=== PATIENT | male | born 1950 | race American Indian/Alaskan Native ===

== ENCOUNTER 2017-10-11 20:37 | Emergency (ER) | payer MEDICARE ==
--- NOTE | 2017-10-11 22:45 | XRay Report ---
FINAL REPORT PROCEDURE: XR CHEST ROUTINE 2V TECHNIQUE: PA and lateral chest radiographs were obtained. CPT 38795 HISTORY: TIERNEY COMPARISON: No prior studies are available for comparison. FINDINGS: Heart: The heart size is enlarged. Multiple sternal wires are present. There is a cardiac pacemaker with the battery in the left chest wall. Mediastinum/Vessels: Normal. Lungs/Pleural space: Mild atelectasis both lower lungs. No effusion or pneumothorax. Bony thorax: No acute osseous abnormality. Other: IMPRESSION: Mild atelectasis both lower lungs. Moderate cardiomegaly..
--- NOTE | 2017-10-12 01:57 | Emergency Department Report ---
ED General Adult HPI - General Chief complaint: Dyspnea/Respdistress Stated complaint: SOB Time Seen by Provider: 10/12/17 01:42 Source: patient Mode of arrival: Ambulatory Limitations: No Limitations - History of Present Illness Initial comments: Mr. Baum is 67 years old male history of congestive heart failure with EF of 10%, ICD in place. Patient is visiting from [place]. He stated that he misplaced his Lasix and he just recently found it any peptic then he is feeling much better but he is in need for refill of his Ambien, clonazepam, spironolactone and Percocet that he is taking for his compound ankle fracture. He denying chest pain, weakness numbness or tingling sensation. - Related Data Home Medications Medication Instructions Recorded Confirmed Last Taken Carvedilol [Coreg] 12.5 mg PO BID 06/11/17 06/28/17 06/28/17 Clopidogrel [Plavix] 75 mg PO QDAY 06/11/17 06/28/17 06/28/17 Furosemide [Lasix] 80 mg PO DAILY 06/11/17 06/28/17 06/28/17 Lisinopril [Zestril] 10 mg PO DAILY 06/11/17 06/28/17 06/28/17 clonazePAM 0.5 mg PO TID PRN 06/11/17 06/28/17 06/28/17 Previous Rx's Medication Instructions Recorded Last Taken Type Spironolactone [Aldactone] 12.5 mg PO QDAY #30 tablet 06/14/17 06/28/17 Rx Metolazone [Zaroxolyn] 2.5 mg PO Q2D #30 tablet 07/02/17 Unknown Rx Zolpidem [Ambien] 10 mg PO QHS #5 tablet 07/02/17 Unknown Rx Allergies Allergy/AdvReac Type Severity Reaction Status Date / Time Penicillins AdvReac Severe Rash Verified 06/11/17 18:23 ED Review of Systems ROS: Stated complaint: SOB Other details as noted in HPI Comment: All other systems reviewed and negative Constitutional: denies: chills, fever Respiratory: denies: cough, shortness of breath, SOB with exertion, SOB at rest , wheezing Cardiovascular: denies: chest pain, palpitations, dyspnea on exertion, orthopnea Gastrointestinal: denies: abdominal pain, nausea, vomiting, diarrhea, constipation Musculoskeletal: denies: back pain Neurological: denies: headache, weakness, numbness, paresthesias, confusion, abnormal gait ED Past Medical Hx - Past Medical History Previous Medical History?: Yes Hx Hypertension: Yes Hx Congestive Heart Failure: Yes Hx Diabetes: Yes (borderline) Hx Asthma: Yes (as a child) Hx COPD: No - Surgical History Past Surgical History?: Yes Hx Open Heart Surgery: Yes (triple bypass) Hx Pacemaker: Yes Hx Internal Defibrillator: Yes Additional Surgical History: defibrillator, Left leg surgery - Social History Smoking Status: Former Smoker Substance Use Type: None - Medications Home Medications: Home Medications Medication Instructions Recorded Confirmed Last Taken Type Carvedilol [Coreg] 12.5 mg PO BID 06/11/17 06/28/17 06/28/17 History Clopidogrel [Plavix] 75 mg PO QDAY 06/11/17 06/28/17 06/28/17 History Furosemide [Lasix] 80 mg PO DAILY 06/11/17 06/28/17 06/28/17 History Lisinopril [Zestril] 10 mg PO DAILY 06/11/17 06/28/17 06/28/17 History clonazePAM 0.5 mg PO TID PRN 06/11/17 06/28/17 06/28/17 History Spironolactone [Aldactone] 12.5 mg PO QDAY #30 tablet 06/14/17 06/28/17 Rx Metolazone [Zaroxolyn] 2.5 mg PO Q2D #30 tablet 07/02/17 Unknown Rx Zolpidem [Ambien] 10 mg PO QHS #5 tablet 07/02/17 Unknown Rx ED Physical Exam - General Limitations: No Limitations General appearance: alert, in no apparent distress, other (patient in no acute distress, no shortness of breath or dyspnea or tachypnea. He is talking in full sentences.) - Head Head exam: Present: atraumatic, normocephalic, normal inspection - Eye Eye exam: Present: normal appearance, PERRL - ENT ENT exam: Present: normal exam, normal orophraynx, mucous membranes moist - Neck Neck exam: Present: normal inspection, full ROM. Absent: tenderness, meningismus, lymphadenopathy, thyromegaly - Respiratory Respiratory exam: Present: normal lung sounds bilaterally. Absent: respiratory distress, wheezes, rales, rhonchi, stridor, chest wall tenderness, accessory muscle use, decreased breath sounds, prolonged expiratory - Cardiovascular Cardiovascular Exam: Present: regular rate, normal rhythm, normal heart sounds - GI/Abdominal GI/Abdominal exam: Present: soft, normal bowel sounds. Absent: distended, tenderness, guarding, rebound, rigid, organomegaly, mass, bruit, pulsatile mass , hernia - Extremities Exam Extremities exam: Present: normal inspection, full ROM, normal capillary refill. Absent: tenderness, pedal edema, joint swelling, calf tenderness - Back Exam Back exam: Present: normal inspection, full ROM. Absent: tenderness, CVA tenderness (R), CVA tenderness (L), muscle spasm, paraspinal tenderness, vertebral tenderness, rash noted - Neurological Exam Neurological exam: Present: alert, oriented X3, CN II-XII intact, normal gait - Skin Skin exam: Present: warm, intact, normal color ED Course Vital Signs 10/11/17 10/12/17 21:23 01:01 Temperature 97.9 F 98.1 F Pulse Rate 77 63 Respiratory 18 24 Rate Blood Pressure 136/100 Blood Pressure 135/81 [Left] O2 Sat by Pulse 99 98 Oximetry ED Medical Decision Making - Radiology Data Radiology results: report reviewed Referring Physician: JEFFREY DICKINSON Patient Name: JORDAN BAUM Date of : 1950 Sex: Male Report Date: 2017-10-11 Report Status: Finalized Findings [facility] [address] [place] [address] XRay Report Signed Patient: JORDAN BAUM MR#: [id number] : 1950 Acct:[id number] Age/Sex: 67 / M ADM Date: 10/11/17 Loc: ED Attending Dr: Ordering Physician: JEFFREY DICKINSON MD Date of Service: 10/11/17 Procedure(s): XR chest routine 2V Accession Number(s): [id number] cc: JEFFREY DICKINSON MD Fluoro Time In Minutes: FINAL REPORT PROCEDURE: XR CHEST ROUTINE 2V TECHNIQUE: PA and lateral chest radiographs were obtained. CPT 24006 HISTORY: TIERNEY COMPARISON: No prior studies are available for comparison. FINDINGS: Heart: The heart size is enlarged. Multiple sternal wires are present. There is a cardiac pacemaker with the battery in the left chest wall. Mediastinum/Vessels: Normal. Lungs/Pleural space: Mild atelectasis both lower lungs. No effusion or pneumothorax. Bony thorax: No acute osseous abnormality. Other: IMPRESSION: Mild atelectasis both lower lungs. Moderate cardiomegaly.. Transcribed By: [facility] Dictated By: LANA LOPEZ MD Electronically Authenticated By: LANA LOPEZ MD Signed Date/Time: 10/11/172239 DD/ 39 TD/TT: 10/11/172239 - Medical Decision Making After discussing with the patient the reason for his visit patient admitted that he is not here for shortness of breath since he is feeling much better after he took his Lasix that mainly to get a refill for his prescription until he get back to [place] patient stated that he called [facility] and asking to go to the ER to help him with the refill. Critical care attestation.: If time is entered above; I have spent that time in minutes in the direct care of this critically ill patient, excluding procedure time. ED Disposition Clinical Impression: CHF (congestive heart failure), Chronic pain Disposition: DC-01 TO HOME OR SELFCARE Is pt being admited?: No Condition: Stable Instructions: Heart Failure (ED), Chronic Pain (ED) Referrals: JUDITH SESAY MD [Primary Care Provider] - 3-5 Days
[2017-10-12 02:29] VITALS: BP 133/84
== END 2017-10-12 02:25 | disposition home or self-care (01) ==
LOC: ED 20:37
DX: I11.0 Hypertensive heart disease with heart failure (principal); I50.9 Heart failure, unspecified; G89.29 Other chronic pain; J45.909 Unspecified asthma, uncomplicated; Z95.810 Presence of automatic (implantable) cardiac defibrillator; Z87.891 Personal history of nicotine dependence; Z88.0 Allergy status to penicillin; Z95.1 Presence of aortocoronary bypass graft
CPT/HCPCS: 71046